=== PATIENT | female | born 1980 | race Caucasian/White ===

== ENCOUNTER 2016-11-27 06:25 | Inpatient (IN) | payer BC, OTHER ==
[2016-11-24 12:37] VITALS: BMI 37.5
[2016-11-27] MEDS ORDERED: CITRIC ACID-SODIUM CITRATE 15 ML CUP PO ONE (06:45)
[2016-11-27] MEDS: LACTATED RINGERS 1,000 ML IV SCH ×3 (07:00→18:15)
[2016-11-27 07:09] LABS: Basophils % (A) 0 %; CH 31.2; CHCM 35.6; Eosinophils # (A) 0.2 k/uL (0-0.7); Eosinophils % (A) 2 %; HCT 32.3 % (34.0-46.0); HDW 3.92; HGB 11.2 gm/dL (11.4-16.0); Luc # (Auto) 0.21; Luc % (Auto) 3; Lymphocytes # (A) 1.3 k/uL (1.0-4.8); Lymphocytes % (A) 17 %; MCH 30.5 pg (25.0-35.0); MCHC 34.5 g/dL (31.0-37.0); MCV 88.3 fL (80.0-100.0); Mean Platelet Volume 7.2; Monocytes # (A) 0.5 k/uL (0-1.0); Monocytes % (A) 6 %; Neutrophils # (A) 5.9 k/uL (1.3-7.7); Neutrophils % (A) 73 %; Poikilocytosis Slight; RBC 3.66 m/uL (3.80-5.40); RDW 14.1 % (11.5-15.5); WBC 8.1 k/uL (3.8-10.6)
[2016-11-27] MEDS ORDERED: ceFAZolin 2 GM in SODIUM CHLORIDE 0.9% 100 ML IVPB ONE (07:11)
[2016-11-27 07:12] LABS: Glucose,Whole Blood 106 mg/dL (75-99)
--- NOTE | 2016-11-27 07:56 | P.HPOB ---
History of Present Illness H&P Date: 11/27/16 This is a 36-year-old white female 4 para 3003 EDC 12/04/2016 at 39 weeks gestation. Patient presents today for repeat section. She had a previous in 2011 and is declining option for . In addition, she is requesting permanent tubal sterilization. Fetus is been active throughout the . Past surgical history significant for appendectomy 1990, 2011, cholecystectomy 2013. Past medical history is essentially negative. Current medications vitamins daily, amoxicillin 500 mg twice daily per her family doctor for sinusitis. ALLERGIES none known. Family history significant for heart failure, kidney failure, and diabetes. Social history patient is an hotel administrative assistant at the local [employer], she is , she denies tobacco alcohol or drug use. history: Blood type is A-, broke and has been received. Rubella status immune. Group B strep cultures, hepatitis B surface antigen, HIV testing , urine culture, Pap smear all negative. One-hour Glucola 197, 3 hour GTT consistent with gestational diabetes. Home blood sugar monitoring has been reasonably well controlled. Advanced maternal age, testing declined. On exam this is a pleasant white female, 5 foot 5 inches, 228 pounds, vital signs are stable and she is afebrile including an admission blood pressure 143/ 82. Fasting blood sugar 106. The general physical exam is within normal limits. The cervix is closed, posterior, floating, long. Infant is vertex to Yovani's maneuvers. heart rate is consistent with reactive NST. Maternal chest is clear, she is complaining of sinus congestion this morning. Impression: 39 week intrauterine , advanced maternal age, previous C- section declining , undesired fertility, gestational diabetes with reasonably good blood sugar control. Plan: We will proceed with repeat low transverse section and tubal ligation per patient request. She understands the risks benefits and alternatives of this plan. All questions answered. Prophylactic antibiotics will be given. Review of Systems Negative except as in HPI. Past Medical History Additional Past Medical History / Comment(s): GESTATIONAL DIABETES History of Any Multi-Drug Resistant Organisms: None Reported Past Surgical History: Appendectomy, Section, Cholecystectomy Past Anesthesia/Blood Transfusion Reactions: No Reported Reaction Past Psychological History: No Psychological Hx Reported Smoking Status: Never smoker Past Alcohol Use History: None Reported Past Drug Use History: None Reported - Past Family History Mother Family Medical History: No Reported History Medications and Allergies Home Medications Medication Instructions Recorded Confirmed Type Pnv with Ca,No.72/Iron/FA 1 tab PO DAILY 06/22/16 11/27/16 History [ Plus Tablet] Allergies Allergy/AdvReac Type Severity Reaction Status Date / Time No Known Allergies Allergy Verified 11/27/16 06:44 Exam - Vital Signs Vital signs: Vital Signs Temp Pulse Resp BP Pulse Ox 11/27/16 06:46 97.5 F L 104 H 18 143/82 96 See my dictation,. Results Result Diagrams: 11/27/16 07:00 Abnormal Lab Results - Last 24 Hours (Table) 11/27/16 11/27/16 Range/Units 06:59 07:00 RBC 3.66 L (3.80-5.40) m/uL Hgb 11.2 L (11.4-16.0) gm/dL Hct 32.3 L (34.0-46.0) % POC Glucose (mg/dL) 106 H (75-99) mg/dL Assessment and Plan Plan: We will proceed with repeat low transverse section and tubal ligation utilizing Filshie clips. Time with Patient: Less than 30
[2016-11-27] MEDS ORDERED: NALBUPHINE 10 MG/ML AMPUL ONE (07:58)
[2016-11-27] MEDS ORDERED: MORPHINE SULFATE (PF) 0.3 MG/0.3 ML SYR ONE (07:58)
[2016-11-27] MEDS ORDERED: ePHEDrine 50 MG/ML 1 ML AMP ONE (07:58)
[2016-11-27] MEDS ORDERED: KETOROLAC 30 MG/ML 1 ML VIAL ONE (07:58)
[2016-11-27] MEDS ORDERED: OXYTOCIN 10 UNIT/ML 1 ML VIAL IM ONE (07:58)
[2016-11-27] MEDS ORDERED: ONDANSETRON 4 MG/2 ML VIAL ONE (07:58)
[2016-11-27] MEDS ORDERED: ACETAMINOPHEN IV (For NPO) 1,000 MG in EMPTY BAG 1 BAG IVPB ONE (08:53)
[2016-11-27] MEDS ORDERED: ZOLPIDEM 5 MG TAB PO PRN (08:53)
[2016-11-27] MEDS ORDERED: diphenhydrAMINE 25 MG CAP PO PRN (08:53)
[2016-11-27] MEDS ORDERED: diphenhydrAMINE 50 MG CAP PO PRN (08:53)
[2016-11-27] MEDS ORDERED: ACETAMINOPHEN TAB 325 MG TAB PO PRN (08:53)
[2016-11-27] MEDS ORDERED: LANOLIN CREAM 5 GM TUBE TOPICAL PRN (08:53)
[2016-11-27] MEDS ORDERED: diphenhydrAMINE 50 MG/ML 1 ML VIAL IVP PRN (08:53)
[2016-11-27] MEDS ORDERED: METOCLOPRAMIDE 5 MG/ML 2 ML VIAL IVP PRN (08:53)
--- NOTE | 2016-11-27 08:53 | P.OP ---
Date of Procedure: 11/27/16 Preoperative Diagnosis: 39 week intrauterine , previous section declining , undesired fertility, advanced maternal age, gestational diabetes. Postoperative Diagnosis: Liveborn female , nuchal cord 1, right occiput transverse position. Procedure(s) Performed: Repeat low transverse section and tubal ligation Anesthesia: spinal Surgeon: Fatemeh Alvarez Client Experience Administrator #1: Cirilo Zayas Estimated Blood Loss (ml): 600 IV fluids (ml): 1,800 Urine output (ml): 200 Pathology: other (Placenta) Condition: stable Disposition: PACU Description of Procedure: Patient is brought to the operating suite where a spinal analgesia with Duramorph is placed. She is then positioned in the dorsal supine position with left lateral uterine displacement. The appropriate timeout is performed to assure proper patient and procedural identification. Antibiotics are given. The abdomen is prepped and draped in the usual sterile fashion. Analgesia is checked and noted to be adequate. A repeat low transverse skin incision is made , this is carried down through the subcutaneous tissue which is approximate 6-7 cm deep. Fascia is isolated, scored and extended bilaterally with curved Ball scissors. The peritoneum is next identified and incised, there is no bowel or bladder involvement. The bladder is slightly high from the previous , this is taken down gently with Metzenbaum scissors and swept well from the operative field to avoid bladder and/or ureteral injury. A low transverse uterine incision is made, carried down through the myometrium. Artificial amniorrhexis reveals clear fluid. Uterine incision is extended bluntly. The infant's head is delivered in the right occiput transverse position. There is a nuchal cord 1 that was easily reduced. The oropharynx, nasopharynx and external nares were all bulb suctioned on the abdominal wall. The patient is officially delivered of a liveborn female at 0816 hours. The umbilical cord is doubly clamped and ligated, she is handed to waiting nurses for evaluation where scores of 8 and 9 at one and 5 minutes respectively are given. Cord blood is sent to the lab for known Rh- status. The placenta is delivered manually, it is inspected and noted to be intact with trivascular cord at 0816 hours. The uterus is then externalized and massaged. Oxytocin is given. The uterus is swept clean with a sterile sponge to avoid any retained products of conception. The edges of the uterine incision are grasped with Jain clamps. The uterus is closed in a two-step fashion, first layer running locking with 0 Vicryl, second layer imbricated with 0 Vicryl as well. The abdomen is suctioned with suction on guard. Patient's decision for tubal ligation is once again reaffirmed. The tubes are ligated with Filshie clips in the isthmic portion bilaterally, with care to inspect the tube to the fimbriated end to assure proper placement. Bilateral ovaries appear normal. The uterus is placed gently back into the abdominal cavity. Bilateral gutters are inspected and cleaned. Hemostasis of the uterine incision is excellent. Peritoneum is allowed to close by secondary intention. Fascia is closed in a running stitch of 0 Vicryl with over ligation in the midline. Subcutaneous tissue is irrigated, inspected, clean and dry. It is reapproximated with 2-0 Vicryl in a running fashion. 4-0 undyed Vicryl is used and a final subcuticular manner for final skin closure. Steri-Strips and Mastisol are applied to the wound. Abdominal binder is placed. Patient is brought back to the recovery room in excellent condition with stable vital signs including blood pressure 102/53, pulse 92, 95% O2 saturation on room air. Hylton is noted to be draining clear urine. All sponge needle and instrument counts are correct at the end of this procedure.
[2016-11-27] MEDS ORDERED: OXYTOCIN 30 UNITS/500 ML NS 30 UNIT in SALINE 1 500ML.BAG IV SCH (09:00)
[2016-11-27] MEDS: KETOROLAC 30 MG/ML 1 ML VIAL IVP PRN (20:18)
[2016-11-27] MEDS: diphenhydrAMINE 50 MG/ML 1 ML VIAL IVP PRN ×2 (20:19→20:55)
[2016-11-27] MEDS: SENNOSIDES-DOCUSATE SODIUM 1 EACH TAB PO SCH (20:34)
[2016-11-28] MEDS: KETOROLAC 30 MG/ML 1 ML VIAL IVP PRN (02:57)
[2016-11-28 08:03] LABS: Basophils % (A) 0 %; CH 31.2; Eosinophils # (A) 0.1 k/uL (0-0.7); Eosinophils % (A) 1 %; HCT 27.1 % (34.0-46.0); HDW 3.83; Luc # (Auto) 0.14; Luc % (Auto) 2; Lymphocytes # (A) 1.1 k/uL (1.0-4.8); Lymphocytes % (A) 14 %; MCHC 33.5 g/dL (31.0-37.0); MCV 89.6 fL (80.0-100.0); Mean Platelet Volume 7.3; Monocytes # (A) 0.4 k/uL (0-1.0); Monocytes % (A) 5 %; Neutrophils # (A) 5.8 k/uL (1.3-7.7); Neutrophils % (A) 78 %; Poikilocytosis Slight; RBC 3.02 m/uL (3.80-5.40); RDW 14.3 % (11.5-15.5); WBC 7.5 k/uL (3.8-10.6); WBC (Perox) 7.85
[2016-11-28 08:21] LABS: HGB 9.1 gm/dL (11.4-16.0)
[2016-11-28] MEDS: LACTATED RINGERS 1,000 ML IV SCH (08:44)
[2016-11-28] MEDS: SENNOSIDES-DOCUSATE SODIUM 1 EACH TAB PO SCH ×2 (09:13→20:01)
[2016-11-28] MEDS ORDERED: Rhogam IMMUNE GLOBULIN 1,500 UNIT/1 ML IM ONE (09:14)
--- NOTE | 2016-11-28 12:07 | P.PNOBGPC ---
Subjective - Subjective Patient reports: Reports appetite normal, Reports voiding normally, Reports pain well controlled, Reports ambulating normally : doing well Objective - Vital Signs Latest vital signs: Vital Signs Temp Pulse Resp BP Pulse Ox 11/28/16 08:00 98.2 F 71 16 90/55 11/28/16 03:13 98.4 F 79 15 115/69 11/28/16 00:00 98.0 F 84 13 128/68 11/27/16 20:15 98.0 F 78 15 109/58 11/27/16 16:08 98.2 F 84 16 107/67 97 Intake and Output 11/27/16 11/28/16 11/28/16 22:59 06:59 14:59 Intake Total 250 135 Output Total 400 900 500 Balance -150 -765 -500 Intake: IV 125 135 Invasive Line 1 125 135 Intake, IV Titration 125 Amount Lactated Ringers 1,000 ml 125 @ 125 mls/hr IV .Q8H [facility] Rx#:[id number] Output: Urine 400 900 500 Uretheral (Hylton) 400 900 Other: # Voids 1 - Exam Lungs: bilateral: normal Chest: Normal S1, Normal S2 Extremities: Present: normal Abdomen: Present: normal appearance, soft. Absent: distention, tenderness Incision: Present: normal, dry, intact Uterus: Present: normal, firm (The uterine fundus as tonic and nontender around the umbilicus.) - Labs Labs: Abnormal Lab Results - Last 24 Hours (Table) 11/28/16 Range/Units 07:45 RBC 3.02 L (3.80-5.40) m/uL Hgb 9.1 L D (11.4-16.0) gm/dL Hct 27.1 L (34.0-46.0) % Assessment and Plan (1) S/P section Narrative/Plan: Continue routine care. I strongly encouraged her to ambulate in the halls daily. Her diet will be advanced to regular for lunch today. Possible discharge home tomorrow pending no complications. Current Visit: Yes Status: Acute Code(s): Z98.891 - HISTORY OF UTERINE SCAR FROM PREVIOUS SURGERY SNOMED Code(s): 145065796
--- NOTE | 2016-11-28 13:00 | P.PN ---
Progress Note - Text Date:11/28 Time:1237 Patient is status post . Patient seen this morning with VAS score of 2. c/o of pruritus, no c/o nausea/vomiting, comfortable and doing well today.
[2016-11-28] MEDS: Acetaminophen-Codeine 300-30mg TAB PO PRN ×2 (13:31→20:02)
[2016-11-28] MEDS: IBUPROFEN 600 MG TAB PO PRN ×2 (17:10→23:14)
[2016-11-29] MEDS: Acetaminophen-Codeine 300-30mg TAB PO PRN (04:19)
[2016-11-29] MEDS: SENNOSIDES-DOCUSATE SODIUM 1 EACH TAB PO SCH (08:33)
[2016-11-29] MEDS: IBUPROFEN 600 MG TAB PO PRN (08:33)
[2016-11-29 08:48] VITALS: BP 121/73; PULSE 73; RESP 18; TEMP 98.3
--- NOTE | 2016-11-29 11:22 | P.DS ---
Providers Date of admission: 11/27/16 06:25 Expected date of discharge: 11/29/16 Attending physician: Fatemeh Alvarez Primary care physician: Caryn Jay - Discharge Diagnosis(es) (1) S/P section Current Visit: Yes Status: Acute Hospital Course: The patient is a 36-year-old 4 para 3003 admitted at 39 weeks by good dating parameters. She is admitted for repeat low transverse section with intraoperative tubal ligation. Her has been uncomplicated and group B strep status is negative. She was taken to the operating room where she was delivered of a viable 9 lbs. 1 oz. baby girl with Apgars of 8 at 1 minute and 9 at 5 minutes. Her postoperative course was unremarkable vital signs remaining stable and her temperature was afebrile throughout. She was deemed stable for discharge by post operative day #2 and was discharged home to follow-up in the office in 2 weeks for an incision check and 6 weeks routinely. Discharge instructions included calling for any significantly increased bleeding or foul-smelling lochia, significantly increased fever or abdominal pain, perineal complaints, breast complaints, incisional complaints, or anything else that concerned her. She is additionally instructed to have nothing in the vagina for at least 6 weeks time to include intercourse and to abstain from any heavy lifting over the same period of time. She was lastly instructed to do no driving until off of all pain medications or 2 weeks' time, whichever came first. She understood her instructions and agrees to follow up as noted above. Discharge medications included a prescription for Tylenol 3, 1- 2 by mouth every 6 hours when necessary pain, #30 dispensed with no refills. Maternal blood type is A- and cord blood was sent for evaluation for the necessity of RhoGAM prior to discharge. Rubella status is immune. Discharge hemoglobin and hematocrit were 9.1 and 27.1 respectively. As result, she was asked to take iron sulfate daily for at least 1 month to recoup her hemoglobin. Procedures: #1. Repeat low transverse section #2. Intraoperative bilateral tubal occlusion with Filshie clips Patient Condition at Discharge: Good Plan - Discharge Summary New Discharge Prescriptions: Acetaminophen-Codeine 300-30mg [Tylenol #3] 2 tab PO Q6H PRN #30 tablet PRN Reason: Pain Discharge Medication List Pnv with Ca,No.72/Iron/FA [ Plus Tablet] 1 tab PO DAILY 08/22/16 [ History] Acetaminophen-Codeine 300-30mg [Tylenol #3] 2 tab PO Q6H PRN #30 tablet [Rx] Follow up Appointment(s)/Referral(s): Fatemeh Alvarez MD [STAFF PHYSICIAN] - 2 Weeks Discharge Disposition: HOME SELF-CARE
== END 2016-11-29 14:15 | disposition home or self-care (01) | DRG 766 ==
LOC: 4FBP 06:25
PROVIDERS: ADMIT Obstetrics & Gynecology; ATTEND Obstetrics & Gynecology
PROC: 0UL70CZ Occlusion of Bilateral Fallopian Tubes with Extraluminal Device, Open Approach (ICD-10-PCS; principal; 2016-11-27 08:00)
PROC: 10D00Z1 Extraction of Products of Conception, Low, Open Approach (ICD-10-PCS; principal; 2016-11-27 08:00)
DX: O34.211 Maternal care for low transverse scar from previous cesarean delivery (principal); O24.420 Gestational diabetes mellitus in childbirth, diet controlled; Z37.0 Single live birth; Z3A.39 39 weeks gestation of pregnancy; O69.81X0 Labor and delivery complicated by cord around neck, without compression, not applicable or unspecified; O09.523 Supervision of elderly multigravida, third trimester; Z30.2 Encounter for sterilization
CPT/HCPCS: 85025; 85461; 86850; 86870; 86880; 86900; 86901; 86902; 88307